=== PATIENT | male | born 1990 | race African-American/Black ===

== ENCOUNTER 2020-11-24 20:15 | Emergency (ER) | payer OTHER ==
[~2020-11-24] VITALS: Ht 165.1 cm; Wt 79.8 kg
--- NOTE | 2020-11-24 21:00 | NUR ---
PT BIBSELF C/O HEADACHE AND NAUSEA SINCE THIS MORNING AFTER TAKING PREWORKOUT FOR THE GYM. PT ALERT AND ORIENTED X3. AMBULATORY WITH NON LABORED BREATHING.
--- NOTE | 2020-11-24 21:18 | NUR ---
URINE COLLECTED AND SENT TO THE LAB.
--- NOTE | 2020-11-24 21:22 | NUR ---
COVID SWABS COLLECETED AND SENT TO LAB
[2020-11-24] MEDS ORDERED: ONDANSETRON HCL/PF 4 MG/2 ML VIAL ONE (21:27)
[2020-11-24] MEDS ORDERED: KETOROLAC TROMETHAMINE 15 MG/ML VIAL ONE (21:27)
[2020-11-24] MEDS ORDERED: IV NS 0.9% 1,000 ML BAG IV ONE (21:30)
[2020-11-24] MEDS ORDERED: ONDANSETRON HCL/PF 4 MG/2 ML VIAL IVP ONE (21:30)
[2020-11-24] MEDS ORDERED: KETOROLAC TROMETHAMINE INJ 30 MG/ML VIAL IV ONE (21:30)
[2020-11-24 21:42] LABS: BASOPHILS % (AUTO) 0.8 % (0.0-2.0); EOSINOPHILS % (AUTO) 1.8 % (0.0-6.0); HEMATOCRIT 41 % (39-51); HEMOGLOBIN 13.4 g/dL (13.5-17.5); MEAN CORPUSCULAR HGB CONC 33 g/dl (31.0-36.0); MEAN CORPUSCULAR VOLUME 87 fL (80-96); MONOCYTES # (AUTO) 0.6 K/uL (0.1-1.30); MONOCYTES % (AUTO) 12.8 % (2.0-12.0); NEUTROPHILS # (AUTO) 1.7 K/uL (1.8-8.9); NEUTROPHILS % (AUTO) 38.6 % (43.0-81.0); PLATELET COUNT (AUTO) 170 K/uL (150-450); WHITE BLOOD COUNT (AUTO) 4.4 K/uL (4.3-11.0)
--- NOTE | 2020-11-24 21:44 | NUR ---
BLOOD COLLECTED AND SENT TO LAB.
[2020-11-24 21:56] LABS: CREATININE 1.3 mg/dL (0.6-1.3); POTASSIUM 4.4 mmol/L (3.5-5.1)
[2020-11-24 22:02] LABS: ALBUMIN 3.6 g/dL (3.4-5.0); BILIRUBIN,DIRECT 0.1 mg/dL (0.0-0.2); BILIRUBIN,TOTAL 0.4 mg/dL (0.2-1.0); TOTAL PROTEIN, SERUM 6.7 g/dL (6.4-8.2)
[2020-11-24 22:06] LABS: CALCIUM, SERUM 8.4 mg/dL (8.5-10.1)
[2020-11-24] MEDS ORDERED: ONDA4TAB5 PO (23:18)
[2020-11-24] MEDS ORDERED: IBUP-1955 PO (23:18)
[2020-11-24 23:25] VITALS: BP 122/77
--- NOTE | 2020-11-24 23:25 | NUR ---
Patient discharged to home in stable condition. Written and verbal after care instructions given. Patient verbalizes understanding of instruction. rx given
== END 2020-11-24 23:33 | disposition home or self-care (01) ==
LOC: ER 20:19
DX: B34.9 Viral infection, unspecified (principal); Z20.822 Contact with and (suspected) exposure to COVID-19; R10.13 Epigastric pain
CPT/HCPCS: 71045; 71046; 80048; 80076; 83690; 85025; 87426; 93005; 96361; 96374; 96375; 99285; J1885; J2405; J7030; U0003; 36415; C9803

== ENCOUNTER 2023-03-06 22:41 | Emergency (ER) | payer OTHER ==
[~2023-03-06] VITALS: Ht 167.6 cm; Wt 79.8 kg
[~2023-03-06 22:41] MED LIST: IBUP-1955 PO; ONDA4TAB5 PO
[2023-03-06] MEDS ORDERED: METOCLOPRAMIDE HCL 10 MG/2 ML VIAL ONE (23:00)
[2023-03-06] MEDS ORDERED: KETOROLAC TROMETHAMINE 15 MG/ML VIAL ONE (23:00)
[2023-03-06] MEDS ORDERED: diphenhydrAMINE HCL 50 MG/ML VIAL ONE (23:00)
[2023-03-06] MEDS: METOCLOPRAMIDE HCL 10 MG/2 ML VIAL IV ONE (23:26)
[2023-03-06] MEDS: KETOROLAC TROMETHAMINE INJ 30 MG/ML VIAL IV ONE (23:26)
[2023-03-06] MEDS: diphenhydrAMINE HCL 50 MG/ML VIAL IV ONE (23:26)
[2023-03-06] MEDS: IV NS 0.9% 1,000 ML BAG IV ONE (23:26)
[2023-03-06 23:30] LABS: BASOPHILS % (AUTO) 0.4 % (0.0-2.0); EOSINOPHILS % (AUTO) 0.2 % (0.0-6.0); HEMATOCRIT 42 % (39-51); LYMPHOCYTES # (AUTO) 1.3 K/uL (0.8-4.8); LYMPHOCYTES % (AUTO) 25.5 % (20.0-44.0); MEAN CORPUSCULAR HEMOGLOBIN 28 PG (26.0-33.0); MEAN CORPUSCULAR HGB CONC 34 g/dl (31.0-36.0); MEAN CORPUSCULAR VOLUME 83 fL (80-96); MONOCYTES # (AUTO) 0.4 K/uL (0.1-1.30); MONOCYTES % (AUTO) 8.5 % (2.0-12.0); NEUTROPHILS # (AUTO) 3.3 K/uL (1.8-8.9); NEUTROPHILS % (AUTO) 65.4 % (43.0-81.0); PLATELET COUNT (AUTO) 216 K/uL (150-450); RED BLOOD CELL COUNT(AUTO) 5.05 MIL/uL (4.5-6.0); RED CELL DISTRIBUTION WIDTH 13.5 % (11.5-15.0); WHITE BLOOD COUNT (AUTO) 5.1 K/uL (4.3-11.0)
[2023-03-06 23:41] LABS: CALCIUM, SERUM 9.5 mg/dL (8.5-10.1); CREATININE 1.1 mg/dL (0.6-1.3); POTASSIUM 3.4 mmol/L (3.5-5.1)
[2023-03-07 01:05] VITALS: BP 102/59; O2SAT 99
== END 2023-03-07 02:10 | disposition home or self-care (01) ==
LOC: ER 22:43
DX: R51.9 Headache, unspecified (principal)
CPT/HCPCS: 99284; 96374; 96375; 96361; 85025; 80048; 36415; J1200; J2765; J7030 ×2; J1885

== ENCOUNTER 2024-11-27 10:27 | Emergency (ER) | payer MEDICAID, OTHER ==
[~2024-11-27] VITALS: Ht 165.1 cm; Wt 74.8 kg
[2024-11-27] MEDS: ASPIRIN 325 MG TABLET PO ONE (10:57)
[2024-11-27] MEDS ORDERED: ASPIRIN 325 MG TABLET ONE (10:57)
[2024-11-27 11:10] LABS: ASPARTATE AMINOTRANSFERASE 59 U/L (15-37); CALCIUM, SERUM 8.6 mg/dL (8.5-10.1); CREATININE 0.8 mg/dL (0.6-1.3); TOTAL PROTEIN, SERUM 6.9 g/dL (6.4-8.2); UREA NITROGEN, BLOOD 30 mg/dL (7-18)
[2024-11-27 11:15] LABS: PLATELET COUNT (AUTO) 122 K/uL (150-450); RED BLOOD CELL COUNT(AUTO) 4.88 MIL/uL (4.5-6.0); RED CELL DISTRIBUTION WIDTH 13.6 % (11.5-15.0); WHITE BLOOD COUNT (AUTO) 2.1 K/uL (4.3-11.0)
[2024-11-27 11:32] LABS: SODIUM SERUM 132 mmol/L (136-145)
[2024-11-27 11:55] LABS: LYMPHOCYTES % (MANUAL) 64 % (16-48); MONOCYTES % (MANUAL) 4 % (0-11.0); NEUTROPHILS % (MANUAL) 32 (42-76); PLATELET ESTIMATE DECREASED
[2024-11-27 13:42] VITALS: BP 103/58; TEMP 97.6; O2SAT 88
== END 2024-11-27 13:43 | disposition home or self-care (01) ==
LOC: ER 10:34
DX: R07.89 Other chest pain (principal)
CPT/HCPCS: 36415; 71045-TC; 80048-TC; 80076-TC; 84484-TC; 85027-TC